=== PATIENT | female | born 1975 | race Caucasian/White ===

== ENCOUNTER 2016-12-10 19:45 | Observation (INO) | payer OTHER ==
[~2016-12-10] VITALS: Ht 160 cm; Wt 72.1 kg
[2016-12-10 21:16] VITALS: BP 89/65
[2016-12-10] MEDS ORDERED: MIC5 PO (21:39)
[2016-12-10] MEDS ORDERED: PREN-380 PO (21:39)
== END 2016-12-10 22:05 | disposition home or self-care (01) ==
LOC: MLD 19:45
PROVIDERS: ADMIT Obstetrics & Gynecology; ATTEND Obstetrics & Gynecology
DX: O26.899 Other specified pregnancy related conditions, unspecified trimester (principal); R10.32 Left lower quadrant pain; Z3A.00 Weeks of gestation of pregnancy not specified
CPT/HCPCS: G0378